=== PATIENT | male | born 1935 | race Two or more races ===

== ENCOUNTER 2016-09-20 16:46 | Emergency (ER) | payer MEDICARE ==
--- NOTE | 2016-09-20 18:30 | ED ---
General Adult HPI - General Chief complaint: Recheck/Abnormal Lab/Rx Stated complaint: Hypertension Time Seen by Provider: 09/20/16 18:30 Source: patient, RN notes reviewed, old records reviewed Mode of arrival: ambulatory Limitations: no limitations - History of Present Illness Initial comments: This is an 79-year-old male the ER for evaluation of elevated blood pressure. Patient states she's been drinking his blood pressure up patient basis and has been mildly elevated as of late. He has not seen a doctor in 3 years ever since his passing, patient states he is also nearing the anniversary of his 's passing. Patient admits to increased stress and anxiety regarding this time. Denies medication for blood pressure, and that again seen a family doctor regarding this. Patient is asymptomatic no headache no chest pain or shortness of breath or abdominal pain. - Related Data Home Medications Medication Instructions Recorded Confirmed Docusate [Colace] 100 mg PO DAILY 09/20/16 09/20/16 Glucosamine Sulfate 1,000 mg PO QAM 09/20/16 09/20/16 Loratadine [Claritin] 10 mg PO HS 09/20/16 09/20/16 Allergies Allergy/AdvReac Type Severity Reaction Status Date / Time No Known Allergies Allergy Verified 09/20/16 18:49 Review of Systems ROS Statement: Those systems with pertinent positive or pertinent negative responses have been documented in the HPI. ROS Other: All systems not noted in ROS Statement are negative. Past Medical History Past Medical History: Osteoarthritis (OA) Additional Past Medical History / Comment(s): PUD, perforated duodenal ulcer 1962. History of Any Multi-Drug Resistant Organisms: MRSA Date of last positivie culture/infection: 06/21/16 MDRO Source:: AX[facility]A Past Surgical History: Bowel Resection Additional Past Surgical History / Comment(s): Gastrectomy in 1975 r/t severe PUD. Past Anesthesia/Blood Transfusion Reactions: No Reported Reaction Past Psychological History: Depression Smoking Status: Never smoker Past Alcohol Use History: None Reported Past Drug Use History: None Reported - Past Family History Brother(s) Family Medical History: Cancer Sister(s) Family Medical History: Deep Vein Thrombosis (DVT) Father Family Medical History: Myocardial Infarction ([place]) Mother Family Medical History: Asthma General Exam Limitations: no limitations General appearance: alert, in no apparent distress, anxious Head exam: Present: atraumatic, normocephalic, normal inspection Eye exam: Present: normal appearance, PERRL, EOMI. Absent: scleral icterus, conjunctival injection, periorbital swelling ENT exam: Present: normal exam, mucous membranes moist Neck exam: Present: normal inspection. Absent: tenderness, meningismus, lymphadenopathy Respiratory exam: Present: normal lung sounds bilaterally. Absent: respiratory distress, wheezes, rales, rhonchi, stridor Cardiovascular Exam: Present: regular rate, normal rhythm, normal heart sounds. Absent: systolic murmur, diastolic murmur, rubs, gallop, clicks GI/Abdominal exam: Present: soft, normal bowel sounds. Absent: distended, tenderness, guarding, rebound, rigid Extremities exam: Present: normal inspection, full ROM, normal capillary refill. Absent: tenderness, pedal edema, joint swelling, calf tenderness Back exam: Present: normal inspection Neurological exam: Present: alert, oriented X3, CN II-XII intact Psychiatric exam: Present: normal affect, normal mood Skin exam: Present: warm, dry, intact, normal color. Absent: rash Course Vital Signs 09/20/16 09/20/16 17:46 18:50 Temperature 98.1 F Pulse Rate 71 65 Respiratory 18 16 Rate Blood Pressure 179/87 164/95 O2 Sat by Pulse 98 98 Oximetry - Reevaluation(s) Reevaluation #1: 09/20/16 18:53 Patient spoke at length greater than 15 minutes going blood pressure therapy in symptoms. Patient is asymptomatic, questions are answered, would like to follow up with Dr. Fong EKG Findings - EKG Comments: EKG Findings:: EKG shows normal sinus rhythm rate of 60, MD 170, QRS 78, QTC 404 Medical Decision Making - Medical Decision Making 81 male the ER with complicated new diagnosis of hypertension, patient's blood pressures improved, patient also suffering with grief, related to his 's and recent anniversary of his 's , patient having anxiety, will treat patient's blood pressure and anxiety, patient states he will follow-up with Dr. Fong's office in the morning for long-term medication and therapy. Disposition Clinical Impression: Hypertension, Grief reaction Disposition: HOME SELF-CARE Condition: Good Instructions: Hypertension (ED) Referrals: Rashaun Fong MD [Primary Care Provider] - 1-2 days
[2016-09-20] MEDS ORDERED: cloNIDine HCL 0.2 MG TAB PO STA (18:36)
[2016-09-20] MEDS ORDERED: LORazepam 1 MG TAB PO STA (18:36)
[2016-09-20] MEDS ORDERED: HYDROCHLOROTHIAZIDE 25 MG TAB PO STA (18:36)
[2016-09-20] MEDS ORDERED: ONDANSETRON ODT 4 MG TAB PO STA (18:37)
[2016-09-20 18:51] VITALS: RESP 16
[2016-09-20 19:27] VITALS: BP 157/85; PULSE 80; TEMP 97.9
== END 2016-09-20 19:27 | disposition home or self-care (01) ==
LOC: EC 16:46
DX: I10 Essential (primary) hypertension (principal); F43.20 Adjustment disorder, unspecified; M19.90 Unspecified osteoarthritis, unspecified site; Z79.899 Other long term (current) drug therapy
CPT/HCPCS: 93005; 99284

== ENCOUNTER → 2018-09-19 | Outpatient (CLI) | payer MEDICARE ==
--- NOTE | 2018-09-19 15:43 | XR ---
EXAMINATION TYPE: XR chest 2V DATE OF EXAM: 09/19/2018 COMPARISON: Chest x-ray December 02, 2015 HISTORY: Abnormal weight loss and weakness. TECHNIQUE: Frontal and lateral views of the chest are obtained. FINDINGS: There is no focal air space opacity, pleural effusion, or pneumothorax seen. The cardiac silhouette size is within normal limits. Surgical clips gastroesophageal region just below diaphragm are redemonstrated. The osseous structures are intact. IMPRESSION: No acute cardiopulmonary process. No significant change from prior.
--- NOTE | 2018-09-20 07:05 | CT ---
EXAMINATION TYPE: CT abdomen pelvis w con DATE OF EXAM: 09/19/2018 COMPARISON: 12/01/2015 HISTORY: Abnormal weight loss CT DLP: 1057 mGycm Automated exposure control for dose reduction was used. CONTRAST: CT scan of the abdomen pelvis is performed with IV Contrast, patient injected with 100 mL of Isovue 3 00. FINDINGS- LUNG BASES-subsegmental linear changes at the lung base most typical scar or atelectasis. Coronary ar daniela calcification noted.. LIVER/GB-there is intrahepatic ductal dilation involving the predominantly the left lobe of the liver with lesser involvement of the right lobe. There is a large area of diminished attenuation involving the caudate lobe and portions of the right lobe of the liver measuring approximately 8 x 5 cm. Gallb ladder appears to be distended.. PANCREAS- No gross abnormality is seen. SPLEEN- No gross abnormality is seen. ADRENALS-stable thickening of the left adrenal gland. KIDNEYS/BLADDER-no hydronephrosis. Sub-5 mm hypodensities in the kidneys are too small to characteriz e. BOWEL-diverticulosis of colon with no CT evidence of diverticulitis.. LYMPH NODES- No greater than 1cm abdominal or pelvic lymph nodes areappreciated. OSSEOUS STRUCTURES-hypertrophic and degenerative changes spine noted.. Diffuse disc bulging is noted at multiple levels with suspected multilevel canal stenosis OTHER- bladder is nondistended but demonstrates a thickened wall. Chronic cystitis differential diag nosis. Ill-defined attenuation within the fat anterior to liver may representing degree of mesenterit is. Early omental caking not excluded. Surgical clips in the epigastrium noted. IMPRESSION- 1. There is gallbladder hydrops and there is intrahepatic biliary dilation with a large area of ill-d efined abnormal attenuation measuring 8 x 5 cm predominantly involving the caudate lobe and right lob e of the liver. Neoplastic process would be the differential diagnosis such as cholangiocarcinoma. Re commend MRI. 2. Correlate for chronic cystitis 3. Ill attenuation of the fat anterior to the liver somewhat subtle but could be seen with a mesenter itis or early omental caking.
== END | disposition home or self-care (01) ==
LOC: RADCTMAIN 14:50
PROVIDERS: ATTEND Internal Medicine
DX: K82.1 Hydrops of gallbladder (principal); R94.5 Abnormal results of liver function studies; R63.4 Abnormal weight loss
CPT/HCPCS: 82565; 84520; 71046; 74177; 36415; Q9967

== ENCOUNTER → 2018-10-03 | Day surgery (SDC) | payer MEDICARE ==
[~2018-10-03] MED LIST: ALPRAZolam 0.25 MG TAB PO ONE
[2018-10-03 09:14] VITALS: RESP 16; TEMP 97.6
[2018-10-03 09:18] LABS: Mean Platelet Volume 9.2; Platelet Count 330 k/uL (150-450)
[2018-10-03 09:25] LABS: INR 1.2 (<1.2)
[2018-10-03 09:26] LABS: Prothrombin Time 12.4 sec (9.0-12.0)
[2018-10-03] MEDS: HYDROmorphone 1 MG/ML 1 ML SYRINGE IVP STA ×2 (10:40→11:05)
--- NOTE | 2018-10-03 14:34 | US ---
EXAMINATION TYPE: US biopsy liver DATE OF EXAM: 10/03/2018 HISTORY: Liver mass. FINDINGS: Maximal barrier technique was utilized. The skin overlying a suitable path to the patient' s right lobe liver mass was localized with ultrasound and the overlying skin prepped and draped. Ult rasound was utilized with sterile technique. Lidocaine was used for local anesthesia. A skin rogerio w as made with a scalpel. An 18-gauge needle was advanced under direct ultrasound guidance and core sp ecimen obtained of the mass. Specimen submitted in formalin to Pathology. Following the procedure, hemostasis achieved and the patient is discharged in stable condition without complication. IMPRESSION:STATUS POST ULTRASOUND GUIDED CORE BIOPSY OF liver MASS, PATHOLOGY IS PENDING. THIS PROCE DURE IS PERFORMED BY THE UNDERSIGNED.
[2018-10-03 15:47] VITALS: BP 126/71; PULSE 68
== END | disposition home or self-care (01) ==
LOC: RADPROMAIN 08:45
PROVIDERS: ATTEND Internal Medicine
DX: C22.7 Other specified carcinomas of liver (principal)
CPT/HCPCS: 85049; 85610; 88342; 88307; 88341; 47000; 76942; J1170